=== PATIENT | male | born 1975 | race Caucasian/White ===

== ENCOUNTER 2023-01-05 08:43 | Day surgery (SDC) | payer OTHER ==
[~2023-01-05] VITALS: Ht 175.3 cm; Wt 98.4 kg
[2023-01-05] MEDS ORDERED: fentaNYL citrate 0.05 MG/ML VIAL ONE (09:03)
[2023-01-05] MEDS ORDERED: MIDAZOLAM 5 MG/5 ML VIAL ONE (09:03)
[2023-01-05] MEDS ORDERED: diphenhydrAMINE 50 MG/ML VIAL ONE (09:03)
[2023-01-05] MEDS ORDERED: MIDAZOLAM 5 MG/5 ML VIAL IV ONE (09:40)
[2023-01-05] MEDS ORDERED: diphenhydrAMINE 50 MG/ML VIAL IVP ONE (09:40)
[2023-01-05] MEDS ORDERED: fentaNYL citrate 0.05 MG/ML VIAL IVP ONE (09:40)
== END 2023-01-05 10:42 | disposition home or self-care (01) ==
LOC: MOR 08:43 → MMU 08:44 → MOR 10:42
PROVIDERS: ATTEND Internal Medicine Gastroenterology
DX: R10.13 Epigastric pain (principal); I10 Essential (primary) hypertension; E78.5 Hyperlipidemia, unspecified; Z86.010 Personal history of colon polyps; F17.210 Nicotine dependence, cigarettes, uncomplicated; Z79.899 Other long term (current) drug therapy; Z80.1 Family history of malignant neoplasm of trachea, bronchus and lung
CPT/HCPCS: 43239; 88305; 88312; 88313; 88342; J1200; J2250; J3010